=== PATIENT | female | born 1965 | race Caucasian/White ===

== ENCOUNTER 2018-09-07 08:57 | Outpatient (CLI) | payer OTHER ==
[~2018-09-07] VITALS: Ht 165.1 cm; Wt 94.5 kg
[~2018-09-07 08:57] MED LIST: AMITRIPTYLINE H50 M1 PO; KLONOPIN 0.5MG0.5 MG PO; NEURONTIN600 MG/TAB PO; PRILOSEC 20MG20 MG PO; PRINIVIL20 MG PO; REQUIP 1MG T1 MG/TAB PO; VOLTAREN GEL 1%1 TU TP; ZANAFLEX 4MG TAB4 MG PO; ZTLIDO1 EACH TP; ZYRTEC 10MG10 MG PO
[2018-09-07 09:11] VITALS: BP 133/93; PULSE 99
[2018-09-07 10:08] VITALS: BP 122/82; PULSE 82
[2018-09-07 10:10] VITALS: BP 122/82; PULSE 82
[2018-09-07 10:40] VITALS: BP 131/87; PULSE 78
[2018-09-07 10:40] LABS: CSF APPEARANCE CLEAR; CSF COLOR COLORLESS; CSF RBC 2 /mm3 (0-0)
[2018-09-07 10:44] LABS: GLUCOSE,CSF 58 mg/dL (40-70); TOTAL PROTEIN,CSF 32 mg/dL (15-45)
[2018-09-07 10:47] LABS: CSF MONONUCLEAR 100 % (70-100); CSF POLYMORPHONUCLEAR 0 % (0-6)
[2018-09-07 11:20] VITALS: BP 125/57; PULSE 81
[2018-09-09 14:17] LABS: IGG/ALBUMIN SERUM 0.16 (<=0.40)
[2018-09-09 14:24] LABS: ALBUMIN CSF 15.8 mg/dL (<=27.0)
[2018-09-09 14:47] LABS: CSF IGG/ALBUMIN 0.07 (<=0.21); CSF,IGG 1.1 mg/dL (<=8.1); CSF-IGG INDEX 0.44 (<=0.85)
== END 2018-09-07 11:27 | disposition home or self-care (01) ==
LOC: COL.RAD 08:57
PROVIDERS: Psychiatry & Neurology Neurology
DX: G37.9 Demyelinating disease of central nervous system, unspecified (principal)